=== PATIENT | female | born 1955 | race Two or more races ===

== ENCOUNTER → 2020-07-05 11:13 | Outpatient (BNVA) | payer MEDICAID, SELFPAY | PROVIDERS: PCP Internal Medicine; Referring Provider Internal Medicine; Visit Provider Internal Medicine Endocrinology, Diabetes & Metabolism | DX: E89.0 Postprocedural hypothyroidism (principal); E05.00 Thyrotoxicosis with diffuse goiter without thyrotoxic crisis or storm; E11.9 Type 2 diabetes mellitus without complications; E78.5 Hyperlipidemia, unspecified; I10 Essential (primary) hypertension; B20 Human immunodeficiency virus [HIV] disease | CPT/HCPCS: 99212 ==

== ENCOUNTER 2020-07-05 12:00 | Outpatient (REF) | payer MEDICAID, SELFPAY ==
[2020-07-05 14:44] LABS: Thyroid Stimulating Hormone 0.52 uIU/mL (0.32-4.0)
== END 2020-07-05 12:01 | disposition home or self-care (01) ==
LOC: HO.10HDL 12:00
PROVIDERS: Visit Provider Internal Medicine Endocrinology, Diabetes & Metabolism
DX: E05.00 Thyrotoxicosis with diffuse goiter without thyrotoxic crisis or storm (principal); E89.0 Postprocedural hypothyroidism
CPT/HCPCS: 84439; 84443

== ENCOUNTER 2020-07-10 12:28 | Outpatient (REF) | payer MEDICAID, SELFPAY ==
--- NOTE | 2020-07-10 12:33 | MM_ITS ---
EXAMINATION: MM SCREENING DIGITAL BREAST TOMOSYNTHESIS, BILATERAL CLINICAL INFORMATION: Screening. Asymptomatic. The lifetime risk of breast cancer based on the Tyrer-Cuzick Model is 4%. COMPARISON: Mammography: 05/11/2019, 04/07/2018, 03/13/2017 TECHNIQUE: Digital breast tomosynthesis is performed in both the craniocaudal and mediolateral oblique views along with computer-aided detection (CAD). Synthesized 2D images are generated from the tomosynthesis. FINDINGS: There are scattered areas of fibroglandular density (ACR BI-RADS breast composition Category b). There are no significant masses, abnormal calcifications, or other abnormalities. No significant changes from prior exams. MM/MM tomosynthesis screening BI IMPRESSION: No mammographic evidence of malignancy. ASSESSMENT: BI-RADS 1: Negative RECOMMENDATION: Routine annual mammography screening. This patient's information was entered into a reminder system with a target due date for their next mammogram.
== END 2020-07-10 12:29 | disposition home or self-care (01) ==
LOC: HO.MAMMO 12:28
PROVIDERS: PCP Internal Medicine; Visit Provider Internal Medicine
DX: Z12.31 Encounter for screening mammogram for malignant neoplasm of breast (principal)
CPT/HCPCS: 77063; 77067

== ENCOUNTER 2021-01-03 10:51 | Outpatient (REF) | payer MEDICAID, SELFPAY ==
[2021-01-03 12:31] LABS: Free T4 (Free Thyroxine) 1.17 ng/dL (0.71-1.85); Thyroid Stimulating Hormone 0.15 uIU/mL (0.32-4.0)
== END 2021-01-03 10:52 | disposition home or self-care (01) ==
LOC: HO.LAB 10:51
PROVIDERS: PCP Internal Medicine; Visit Provider Internal Medicine Endocrinology, Diabetes & Metabolism
DX: E89.0 Postprocedural hypothyroidism (principal); E05.00 Thyrotoxicosis with diffuse goiter without thyrotoxic crisis or storm
CPT/HCPCS: 36415; 84439; 84443

== ENCOUNTER → 2021-02-05 11:30 | Outpatient (BNVA) | payer MEDICAID, SELFPAY | PROVIDERS: PCP Internal Medicine; Visit Provider Internal Medicine Endocrinology, Diabetes & Metabolism | DX: E89.0 Postprocedural hypothyroidism (principal); E05.00 Thyrotoxicosis with diffuse goiter without thyrotoxic crisis or storm | CPT/HCPCS: 99212 ==

== ENCOUNTER 2021-06-07 11:38 | Outpatient (REF) | payer MEDICAID, SELFPAY ==
[2021-06-07 15:08] LABS: Free T4 (Free Thyroxine) 1.26 ng/dL (0.71-1.85); Thyroid Stimulating Hormone 0.45 uIU/mL (0.32-4.0)
== END 2021-06-07 11:39 | disposition home or self-care (01) ==
LOC: HO.LAB 11:38
PROVIDERS: PCP Internal Medicine; Visit Provider Nurse Practitioner Gerontology
DX: E89.0 Postprocedural hypothyroidism (principal); E05.00 Thyrotoxicosis with diffuse goiter without thyrotoxic crisis or storm
CPT/HCPCS: 36415; 84439; 84443; 99212

== ENCOUNTER 2021-07-18 08:33 | Outpatient (REF) | payer MEDICAID, SELFPAY | END 2021-07-18 08:34 | disposition home or self-care (01) | LOC: HO.LAB 08:33 | PROVIDERS: PCP Internal Medicine; Visit Provider Internal Medicine | DX: Z20.822 Contact with and (suspected) exposure to COVID-19 (principal) | CPT/HCPCS: C9803; U0003; U0005 ==

== ENCOUNTER 2021-11-22 11:26 | Outpatient (REF) | payer MEDICARE, MEDICAID, SELFPAY ==
--- NOTE | ~2021-11-22 | MM_ITS ---
EXAMINATION: MM SCREENING DIGITAL BREAST TOMOSYNTHESIS, BILATERAL CLINICAL INFORMATION: Screening. Asymptomatic. The lifetime risk of breast cancer based on the Tyrer-Cuzick Model is 4%. COMPARISON: Mammography: 07/10/2020, 05/11/2019, 04/07/2018 TECHNIQUE: Digital breast tomosynthesis is performed in both the craniocaudal and mediolateral oblique views along with computer-aided detection (CAD). Synthesized 2D images are generated from the tomosynthesis. Additional left MLO view is provided. FINDINGS: There are scattered areas of fibroglandular density (ACR BI-RADS breast composition Category b). There are no significant masses, abnormal calcifications, or other abnormalities. Parenchymal pattern is similar to prior studies. No developing density. No significant changes. MM/MM tomosynthesis screening BI IMPRESSION: No mammographic evidence of malignancy. ASSESSMENT: BI-RADS 1: Negative RECOMMENDATION: Routine annual mammography screening. This patient's information was entered into a reminder system with a target due date for their next mammogram.
--- NOTE | ~2021-11-22 | MM_ITS ---
EXAMINATION: BONE DENSITOMETRY CLINICAL INDICATION: Osteoporosis. COMPARISON: None (current study represents initial baseline exam). TECHNIQUE: Using a [employer] DXA System (software version: 13.1) manufactured by [employer], dual-energy x-ray absorptiometry was performed of the lumbar spine and left hip. The images are of good technical quality. Summary results are attached. FINDINGS: AP SPINE L1-L4: BMD 0.942 g/cm2, Z-score -0.2, T-score -2.0, osteopenia. LEFT FEMUR, NECK: BMD 0.936 g/cm2, Z-score 0.9, T-score -0.7, normal. LEFT FEMUR, TOTAL: BMD 0.979 g/cm2, Z-score 1.1, T-score -0.2, normal. IDENTIFIED RISK FACTORS: Menopause, height loss, hysterectomy, low calcium intake, osteoporosis, right oophorectomy. HISTORY OF FRACTURE: None listed. MEDICATIONS: Calcium, vitamin D. MM/XR DEXA axial skeleton IMPRESSION: 1. DIAGNOSIS: Osteopenia based on the lowest T-score value of -2.0 in the lumbar spine applying World Health Organization criteria. 2. 10-YEAR FRACTURE RISK PREDICTION, FRAX: Major osteoporotic fracture (clinical spine, forearm, hip or shoulder) 4.2%. Hip fracture 0.2%. 3. Treatment Recommendations: NOF guidelines recommend consideration for treatment in postmenopausal women and men age 50 and older presenting with the following: -A hip or vertebral (clinical or morphometric) fracture. -T-score less than or equal to -2.5 at the femoral neck or spine after appropriate evaluation to exclude secondary causes. -Low bone mass at the hip or spine and a 10-year fracture probability by FRAX of greater than or equal to 3% for hip fracture or greater than or equal to 20% for major osteoporotic fracture based on the [place] adapted WHO algorithm. 4. Other Recommendations: All treatment decisions require clinical judgment and consideration of individual patient factors, including patient preferences, comorbidities, previous drug use, risk factors not captured in the FRAX model (e.g. frailty, falls, vitamin D deficiency, increased bone turnover, interval significant decline in bone density) and possible under or overestimation of fracture risk by FRAX. Additional medical evaluation for secondary cause of low bone mineral density may be appropriate. FUTURE SCAN RECOMMENDATION: People with diagnosed cases of osteoporosis or at high risk for fracture should have regular bone mineral density tests. For patients eligible for Medicare, routine testing is allowed once every 2 years. The testing frequency can be increased to one year for patients who have rapidly progressing disease, those who are receiving or discontinuing medical therapy to restore bone mass, or have additional risk factors.
== END 2021-11-22 11:27 | disposition home or self-care (01) ==
LOC: HO.MAMMO 11:26
PROVIDERS: PCP Internal Medicine; Visit Provider Internal Medicine
DX: Z12.31 Encounter for screening mammogram for malignant neoplasm of breast (principal); Z13.820 Encounter for screening for osteoporosis; M81.0 Age-related osteoporosis without current pathological fracture; Z78.0 Asymptomatic menopausal state
CPT/HCPCS: 77063; 77067; 77080

== ENCOUNTER 2021-12-06 13:29 | Outpatient (REF) | payer MEDICARE, MEDICAID, SELFPAY ==
[2021-12-06 16:16] LABS: Free T4 (Free Thyroxine) 1.12 ng/dL (0.71-1.85)
== END 2021-12-06 13:30 | disposition home or self-care (01) ==
LOC: HO.LAB 13:29
PROVIDERS: PCP Internal Medicine; Visit Provider Nurse Practitioner Gerontology
DX: E89.0 Postprocedural hypothyroidism (principal); E05.00 Thyrotoxicosis with diffuse goiter without thyrotoxic crisis or storm; Z79.899 Other long term (current) drug therapy; I10 Essential (primary) hypertension
CPT/HCPCS: 36415; 84439; 84443; 99212

== ENCOUNTER 2022-06-24 13:27 | Outpatient (REF) | payer OTHER, SELFPAY ==
--- NOTE | ~2022-06-24 | US_ITS ---
EXAMINATION: US SOFT TISSUE HEAD/NECK CLINICAL INFORMATION: Localized swelling, mass and lump, neck. COMPARISON: None TECHNIQUE: Linear transducer grayscale and color Doppler examination of the sublingual area, midline upper neck. FINDINGS: Ultrasound imaging in sublingual region reveals a hypoechoic solid lesion measuring 0.7 x 0.8 x 1.0 cm. It has peripheral vasculature and likely represents a small lymph node. The measurements are within normal limits. US/US soft tiss head and/or neck IMPRESSION: Palpable lesion in the right sublingual region corresponds to a solid avascular lymph node. The measurements are within normal limits for neck lymph nodes.
== END 2022-06-24 13:28 | disposition home or self-care (01) ==
LOC: HO.US 13:27
PROVIDERS: Visit Provider Family Medicine
DX: R22.1 Localized swelling, mass and lump, neck (principal)
CPT/HCPCS: 76536

== ENCOUNTER 2022-12-06 13:25 | Outpatient (REF) | payer OTHER, SELFPAY ==
--- NOTE | ~2022-12-06 | MM_ITS ---
EXAMINATION: MM SCREENING DIGITAL BREAST TOMOSYNTHESIS, BILATERAL CLINICAL INFORMATION: Screening. Asymptomatic. The lifetime risk of breast cancer based on the Tyrer-Cuzick Model is 4%. COMPARISON: Mammography: 11/22/2021, 07/10/2020, 05/11/2019 TECHNIQUE: Digital breast tomosynthesis is performed in both the craniocaudal and mediolateral oblique views along with computer-aided detection (CAD). Synthesized 2D images are generated from the tomosynthesis. Additional exaggerated left CC view is provided. FINDINGS: There are scattered areas of fibroglandular density (ACR BI-RADS breast composition Category b). There are no significant masses, abnormal calcifications, or other abnormalities. Parenchymal pattern is similar to prior studies. There is no developing density or architectural abnormality. The axilla and skin contours are unremarkable. No significant changes. MM/MM tomosynthesis screening BI IMPRESSION: No mammographic evidence of malignancy. ASSESSMENT: BI-RADS 1: Negative RECOMMENDATION: Routine annual mammography screening. This patient's information was entered into a reminder system with a target due date for their next mammogram.
== END 2022-12-06 13:26 | disposition home or self-care (01) ==
LOC: HO.MAMMO 13:25
PROVIDERS: PCP Internal Medicine; Visit Provider Internal Medicine
DX: Z12.31 Encounter for screening mammogram for malignant neoplasm of breast (principal)
CPT/HCPCS: 77063; 77067

== ENCOUNTER 2023-02-17 10:54 | Outpatient (REF) | payer OTHER, SELFPAY ==
[2023-02-17 13:04] LABS: Anion Gap 15 (12-20); Blood Urea Nitrogen 11 mg/dL (9-16); Calcium 10.1 mg/dL (8.4-10.2); Carbon Dioxide 27 mmol/L (22-29); Chloride 104 mmol/L (96-108); Estimated Glomerular Filt Rate > 60; Glucose Random 118 mg/dL (60-115); Potassium 4.1 mmol/L (3.3-5.1); Sodium 142 mmol/L (135-145)
[2023-02-17 13:22] LABS: Thyroid Stimulating Hormone 0.67 uIU/mL (0.32-4.0)
[2023-02-17 13:45] LABS: Cholesterol 145 mg/dL; HDL Cholesterol 44 mg/dL; LDL Cholesterol Calculated 86 mg/dl; Triglycerides 75 mg/dL
[2023-02-17 15:03] LABS: Reflex LDLD? No
[2023-02-20 01:54] LABS: Thyroid Peroxidase Antibodies 1 IU/mL (<9)
== END 2023-02-17 10:55 | disposition home or self-care (01) ==
LOC: HO.LAB 10:54
PROVIDERS: PCP Internal Medicine; Visit Provider Internal Medicine
DX: I10 Essential (primary) hypertension (principal); E11.65 Type 2 diabetes mellitus with hyperglycemia; E03.9 Hypothyroidism, unspecified; Z00.00 Encounter for general adult medical examination without abnormal findings
CPT/HCPCS: 36415; 80048; 80061; 82306; 84443; 86376

== ENCOUNTER 2023-04-01 11:19 | Outpatient (REF) | payer OTHER, SELFPAY ==
[2023-04-01 13:10] LABS: MANUAL DIFF FLAG NO
[2023-04-01 13:37] LABS: Basophils Absolute Auto 0.1 X10*3/uL (0.0-0.2); Basophils Percent Auto 0.7 % (0-2); Eosinophils Absolute Auto 0.4 X10*3/uL (0.0-0.4); Eosinophils Percent Auto 4.9 % (0-4); Hematocrit 40.1 % (37.0-47.0); Hemoglobin 13.1 g/dl (12.0-16.0); Imm Gran Abs Auto 0.03 X10*3/uL (0.00-0.03); Imm Gran Pct Auto 0.4 % (0.0-0.4); Lymphocytes Absolute Auto 2.8 X10*3/uL (1.2-4.9); Lymphocytes Percent Auto 33.6 % (20-40); Mean Corpuscular HGB Conc 32.7 g/dl (31.0-35.0); Mean Corpuscular Hemoglobin 31.2 pg (27.0-33.0); Mean Corpuscular Volume 95.5 fL (80.0-98.0); Monocytes Absolute Auto 0.7 X10*3/uL (0.1-1.2); Monocytes Percent Auto 8.8 % (2-11); Neutrophils Absolute Auto 4.3 x10*3/uL (2.0-8.3); Neutrophils Percent Auto 51.6 % (45-73); Platelet Count 325 X10*3/uL (160-400); White Blood Count 8.4 X10*3/uL (4.8-10.8)
[2023-04-01 13:51] LABS: Alanine Aminotransferase 40 U/L (0-31); Albumin Level 4.3 g/dL (3.5-5.0); Alkaline Phosphatase 94 U/L (39-117); Anion Gap 13 (12-20); Aspartate Amino Transferase 38 U/L (5-31); Bilirubin Total 0.4 mg/dL (0.0-1.0); Blood Urea Nitrogen 9 mg/dL (9-16); Calcium 10.1 mg/dL (8.4-10.2); Carbon Dioxide 28 mmol/L (22-29); Chloride 106 mmol/L (96-108); Estimated Glomerular Filt Rate > 60; Glucose Random 120 mg/dL (60-115); Potassium 3.7 mmol/L (3.3-5.1); Sodium 143 mmol/L (135-145); Total Protein 7.7 g/dL (6.5-8.0)
[2023-04-02 11:39] LABS: Absolute CD3 Count 1403 cells/uL (840-3060); Absolute CD4 Count 647 cells/uL (490-1740); Absolute CD8 Count 748 cells/uL (180-1170); Absolute Lymphocytes 2919 cells/uL (850-3900); CD4 CD8 Ratio 0.86 (0.86-5.00); Percent CD3 Cells 48 % (57-85); Percent CD4 Cells 22 % (30-61); Percent CD8 Cells 26 % (12-42)
[2023-04-03 15:07] LABS: HIV RNA PCR Qn Copies 114 copies/mL (NOT DETECTED); HIV RNA PCR Qn Log Copies 2.06 (NOT DETECTED)
== END 2023-04-01 11:20 | disposition home or self-care (01) ==
LOC: HO.HHCL 11:19
PROVIDERS: Visit Provider Family Medicine
DX: B20 Human immunodeficiency virus [HIV] disease (principal)
CPT/HCPCS: 36415; 80053; 85025; 86359; 86360; 87536

== ENCOUNTER 2023-04-18 12:04 | Outpatient (REF) | payer OTHER, SELFPAY ==
[2023-04-21 15:53] LABS: HIV RNA PCR Qn Copies 26 copies/mL (NOT DETECTED); HIV RNA PCR Qn Log Copies 1.41 (NOT DETECTED)
== END 2023-04-18 12:05 | disposition home or self-care (01) ==
LOC: HO.HHCL 12:04
PROVIDERS: Visit Provider Family Medicine
DX: B20 Human immunodeficiency virus [HIV] disease (principal)
CPT/HCPCS: 36415; 87536

== ENCOUNTER 2023-09-22 11:06 | Outpatient (REF) | payer OTHER, SELFPAY ==
[2023-09-22 14:16] LABS: Creatinine Urine 64.54 mg/dL; Microalbum/Creatinine Ratio Ur 97.6 ug/mg cr (<30)
[2023-09-24 13:23] LABS: HIV RNA PCR Qn Copies 99 copies/mL (NOT DETECTED)
== END 2023-09-22 11:07 | disposition home or self-care (01) ==
LOC: HO.HHCL 11:06
PROVIDERS: Internal Medicine; Visit Provider Student in an Organized Health Care Education/Training Program
DX: E11.65 Type 2 diabetes mellitus with hyperglycemia (principal); B20 Human immunodeficiency virus [HIV] disease
CPT/HCPCS: 36415; 82043; 82570; 87536

== ENCOUNTER 2023-09-30 12:05 | Outpatient (REF) | payer OTHER, SELFPAY ==
[2023-09-30 14:09] LABS: Vitamin B12 367 pg/mL (200-900)
[2023-09-30 14:13] LABS: Free T4 (Free Thyroxine) 1.19 ng/dL (0.71-1.85); TSH reflex Free T4 1.27 uIU/mL (0.32-4.0)
[2023-09-30 14:24] LABS: T4 Thyroxine 10.8 ug/dL (4.5-12.0)
[2023-10-01 06:23] LABS: Triiodothyronine T3 Free 2.4 pg/mL (2.3-4.2); Triiodothyronine T3 Total 96 ng/dL (76-181)
== END 2023-09-30 12:06 | disposition home or self-care (01) ==
LOC: HO.HHCL 12:05
PROVIDERS: Visit Provider Internal Medicine
DX: E11.65 Type 2 diabetes mellitus with hyperglycemia (principal); E03.9 Hypothyroidism, unspecified
CPT/HCPCS: 36415; 82607; 84436; 84439; 84443; 84480; 84481

== ENCOUNTER 2023-12-10 11:26 | Outpatient (REF) | payer OTHER, SELFPAY ==
--- NOTE | ~2023-12-10 | MM_ITS ---
EXAMINATION: MM SCREENING DIGITAL BREAST TOMOSYNTHESIS, BILATERAL CLINICAL INFORMATION: Screening. Asymptomatic. COMPARISON: Mammography: 11/28/2022, 11/22/2021, 07/10/2020, 05/11/2019. TECHNIQUE: Digital breast tomosynthesis is performed in both the craniocaudal and mediolateral oblique views along with computer-aided detection (CAD). Synthesized 2D images are generated from the tomosynthesis. FINDINGS: There are scattered areas of fibroglandular density (ACR BI-RADS breast composition Category b). There are no suspicious masses, suspicious grouped calcifications, or areas of architectural distortion in either breast. The parenchymal pattern is stable from prior exams. No skin or axillary abnormalities. MM/MM tomosynthesis screening BI IMPRESSION: No mammographic evidence of malignancy. ASSESSMENT: BI-RADS BI-RADS 1 - Negative RECOMMENDATION: Routine annual mammography screening. 1 year F/U This examination should not preclude the clinical evaluation of a suspicious palpable abnormality. This patient's information was entered into a reminder system with a target due date for their next mammogram.
== END 2023-12-10 11:27 | disposition home or self-care (01) ==
LOC: HO.MAMMO 11:26
PROVIDERS: PCP Internal Medicine; Visit Provider Internal Medicine
DX: Z12.31 Encounter for screening mammogram for malignant neoplasm of breast (principal)
CPT/HCPCS: 77063; 77067

== ENCOUNTER → 2023-12-10 12:30 | Outpatient (BNV) | payer OTHER, SELFPAY | PROVIDERS: PCP Internal Medicine; Visit Provider Radiology Diagnostic Radiology | DX: Z12.31 Encounter for screening mammogram for malignant neoplasm of breast (principal) | CPT/HCPCS: 77063; 77067 ==

== ENCOUNTER 2024-02-03 12:16 | Outpatient (REF) | payer OTHER, SELFPAY ==
[2024-02-03 13:04] LABS: MANUAL DIFF FLAG NO
[2024-02-03 13:15] LABS: Appearance Urine Clear; Color Urine Yellow; Glucose Urine UA Negative (Negative); Leukocyte Esterase Urine Large (3+) (Negative); Nitrite Urine Negative (Negative); Specific Gravity - Urine 1.015 (1.005-1.025); UMIC TRIGGER UACC YES; Urine Blood Moderate (2+) (Negative); Urine Ketones Negative (Negative); Urine Protein Negative (Neg-Trace)
[2024-02-03 13:18] LABS: Bacteria Urine 1+ (None Seen); Hyaline Casts Urine 0-2 /LPF (0-2); Squamous Epithelial Cell Urine 0-2 /HPF (0-2); UACC Culture Trigger YES; WBC Urine >50 /HPF (0-5)
[2024-02-03 13:24] LABS: Basophils Absolute Auto 0.1 X10*3/uL (0.0-0.2); Basophils Percent Auto 0.6 % (0-2); Eosinophils Absolute Auto 0.3 X10*3/uL (0.0-0.4); Eosinophils Percent Auto 3.3 % (0-4); Hematocrit 43.5 % (37.0-47.0); Hemoglobin 14.4 g/dl (12.0-16.0); Imm Gran Abs Auto 0.02 X10*3/uL (0.00-0.03); Imm Gran Pct Auto 0.3 % (0.0-0.4); Lymphocytes Absolute Auto 2.2 X10*3/uL (1.2-4.9); Lymphocytes Percent Auto 27.4 % (20-40); Mean Corpuscular HGB Conc 33.1 g/dl (31.0-35.0); Mean Corpuscular Hemoglobin 31.6 pg (27.0-33.0); Mean Corpuscular Volume 95.4 fL (80.0-98.0); Mean Platelet Volume 11.8 fL (9.4-12.3); Monocytes Absolute Auto 0.7 X10*3/uL (0.1-1.2); Monocytes Percent Auto 8.6 % (2-11); Neutrophils Absolute Auto 4.8 x10*3/uL (2.0-8.3); Neutrophils Percent Auto 59.8 % (45-73); Platelet Count 263 X10*3/uL (160-400); Red Blood Count 4.56 X10*6/uL (4.20-5.50); Red Cell Distribution Width 13.2 % (11.0-16.0)
[2024-02-03 13:44] LABS: Estimated Average Glucose 134 mg/dL; Hemoglobin A1c % 6.3 % (<6.0)
[2024-02-03 14:15] LABS: Syphilis Screen Nonreactive (Nonreactive)
[2024-02-03 14:17] LABS: HBS Num1 0.45 mIU/mL (0-7.99); HBc Num1 0.17 S/CO (0.00-0.79); HBsAGNum1 0.25 S/CO (0.00-0.99); Hepatitis B Core Antibody Nonreactive (Nonreactive); Hepatitis B Surface Antigen Negative (Negative); ~Hepatitis B Surface Antibody NONREACTIVE (Nonreactive)
[2024-02-03 14:29] LABS: Alanine Aminotransferase 80 U/L (0-31); Albumin Level 4.6 g/dL (3.5-5.0); Alkaline Phosphatase 92 U/L (39-117); Anion Gap 15 (12-20); Aspartate Amino Transferase 75 U/L (5-31); Bilirubin Total 0.5 mg/dL (0.0-1.0); Blood Urea Nitrogen 11 mg/dL (9-16); Carbon Dioxide 28 mmol/L (22-29); Chloride 104 mmol/L (96-108); Cholesterol 195 mg/dL (<200); Estimated Glomerular Filt Rate > 60; Glucose Random 88 mg/dL (60-115); HDL Cholesterol 48 mg/dL (>40); LDL Cholesterol Calculated 125 mg/dL (<100); Potassium 4.1 mmol/L (3.3-5.1); Sodium 143 mmol/L (135-145); Total Protein 8.5 g/dL (6.5-8.0); Triglycerides 112 mg/dL (<150)
[2024-02-03 14:30] LABS: Reflex LDLD? No
[2024-02-03 14:41] LABS: CT PCR NOT DETECTED (Not Detect.); NG PCR NOT DETECTED (Not Detect.)
[2024-02-04 13:08] LABS: HIV RNA PCR Qn Copies 24 copies/mL (NOT DETECTED); HIV RNA PCR Qn Log Copies 1.38 (NOT DETECTED)
[2024-02-04 15:28] LABS: HCV Log PCR <1.18 NOT DETECTED Log IU/mL (NOT DETECTED); HepC Viral Load <15 NOT DETECTED IU/mL (NOT DETECTED)
[2024-02-06 07:19] LABS: TS Negative Control Passed; TS Panel A 0; TS Panel B 0; TS Positive Control Passed; TSpotTB Negative (Negative)
[2024-02-06 17:37] LABS: Absolute CD3 Count 1161 cells/uL (840-3060); Absolute CD4 Count 579 cells/uL (490-1740); Absolute CD8 Count 579 cells/uL (180-1170); Absolute Lymphocytes 2476 cells/uL (850-3900); Percent CD3 Cells 47 % (57-85); Percent CD4 Cells 23 % (30-61); Percent CD8 Cells 23 % (12-42)
== END 2024-02-03 12:17 | disposition home or self-care (01) ==
LOC: HO.HHCL 12:16
PROVIDERS: Visit Provider Student in an Organized Health Care Education/Training Program
DX: B20 Human immunodeficiency virus [HIV] disease (principal)
CPT/HCPCS: 0352U; 0353U; 36415; 80053; 80061; 81001; 83036; 85025; 86359; 86360; 86481; 86704; 86706; 86780; 87086; 87088; 87186; 87340; 87522; 87536; 87625; 88112; 88175

== ENCOUNTER 2024-02-03 19:06 | Outpatient (REF) | payer OTHER, SELFPAY ==
[2024-02-03 23:03] LABS: CT PCR NOT DETECTED (Not Detect.); NG PCR NOT DETECTED (Not Detect.)
[2024-02-04 11:08] LABS: Bacterial Vaginosis PCR NEGATIVE (Negative); Candida Group PCR NOT DETECTED (Not Detect); Candida glab krusei PCR NOT DETECTED (Not Detect); Trichomonas vaginalis PCR NOT DETECTED (Not Detect)
== END 2024-02-03 19:07 | disposition home or self-care (01) ==
LOC: HO.HHCLNP 19:06
PROVIDERS: Visit Provider Internal Medicine
DX: Z13.89 Encounter for screening for other disorder (principal)
CPT/HCPCS: 0352U; 0353U; 36415; 87625; 88175

== ENCOUNTER 2024-03-12 09:24 | Outpatient (REF) | payer OTHER, SELFPAY ==
--- NOTE | ~2024-03-12 | MM_ITS ---
EXAMINATION: BONE DENSITOMETRY CLINICAL INDICATION: Age-related osteoporosis without current pathological fracture. COMPARISON: Baseline BD dated 11/22/2021. TECHNIQUE: Using a [employer] DXA System (software version: 13.1) manufactured by [employer], dual-energy x-ray absorptiometry was performed of the lumbar spine and left hip. The images are of good technical quality. Summary results are attached. FINDINGS: LEFT FEMUR, NECK: Current: BMD 0.892 g/cm2, Z-score 0.7, T-score -1.0, normal. Baseline: BMD 0.936 g/cm2. LEFT FEMUR, TOTAL: Current: BMD 0.956 g/cm2, Z-score 1.1, T-score -0.4, normal, 2.3% decrease from baseline (<5% change is not significant). Baseline: BMD 0.979 g/cm2. AP SPINE L1-L4: Current: BMD 0.905 g/cm2, Z-score -0.4, T-score -2.3, osteopenia, 3.9% decrease from baseline (<5% change is not significant). Baseline: BMD 0.942 g/cm2. IDENTIFIED RISK FACTORS: Height loss, menopause, hysterectomy, right oophorectomy. HISTORY OF FRACTURE: None listed. MEDICATIONS: Multivitamin. MM/XR DEXA axial skeleton IMPRESSION: 1. DIAGNOSIS: Osteopenia based on the lowest T-score value of -2.3 in the lumbar spine applying World Health Organization criteria. 2. 10-YEAR FRACTURE RISK PREDICTION, FRAX: Major osteoporotic fracture (clinical spine, forearm, hip or shoulder) 4.7%. Hip fracture 0.4%. 3. Treatment Recommendations: NOF guidelines recommend consideration for treatment in postmenopausal women and men age 50 and older presenting with the following: -A hip or vertebral (clinical or morphometric) fracture. -T-score less than or equal to -2.5 at the femoral neck or spine after appropriate evaluation to exclude secondary causes. -Low bone mass at the hip or spine and a 10-year fracture probability by FRAX of greater than or equal to 3% for hip fracture or greater than or equal to 20% for major osteoporotic fracture based on the [place] adapted WHO algorithm. 4. Other Recommendations: All treatment decisions require clinical judgment and consideration of individual patient factors, including patient preferences, comorbidities, previous drug use, risk factors not captured in the FRAX model (e.g. frailty, falls, vitamin D deficiency, increased bone turnover, interval significant decline in bone density) and possible under or overestimation of fracture risk by FRAX. Additional medical evaluation for secondary cause of low bone mineral density may be appropriate. FUTURE SCAN RECOMMENDATION: People with diagnosed cases of osteoporosis or at high risk for fracture should have regular bone mineral density tests. For patients eligible for Medicare, routine testing is allowed once every 2 years. The testing frequency can be increased to one year for patients who have rapidly progressing disease, those who are receiving or discontinuing medical therapy to restore bone mass, or have additional risk factors.
== END 2024-03-12 09:25 | disposition home or self-care (01) ==
LOC: HO.MAMMO 09:24
PROVIDERS: PCP Internal Medicine; Visit Provider Internal Medicine
DX: M81.0 Age-related osteoporosis without current pathological fracture (principal)
CPT/HCPCS: 77080

== ENCOUNTER 2024-04-30 11:35 | Outpatient (REF) | payer OTHER, SELFPAY ==
[2024-04-30 16:37] LABS: Basophils Absolute Auto 0.1 X10*3/uL (0.0-0.2); Basophils Percent Auto 0.9 % (0-2); Eosinophils Absolute Auto 0.3 X10*3/uL (0.0-0.4); Eosinophils Percent Auto 3.7 % (0-4); Hematocrit 42.7 % (37.0-47.0); Imm Gran Abs Auto 0.02 X10*3/uL (0.00-0.03); Imm Gran Pct Auto 0.2 % (0.0-0.4); Lymphocytes Absolute Auto 2.2 X10*3/uL (1.2-4.9); Lymphocytes Percent Auto 27.2 % (20-40); MANUAL DIFF FLAG NO; Mean Corpuscular HGB Conc 32.8 g/dl (31.0-35.0); Mean Corpuscular Hemoglobin 31.7 pg (27.0-33.0); Mean Corpuscular Volume 96.8 fL (80.0-98.0); Mean Platelet Volume 12.1 fL (9.4-12.3); Monocytes Absolute Auto 0.8 X10*3/uL (0.1-1.2); Monocytes Percent Auto 9.5 % (2-11); Neutrophils Absolute Auto 4.7 x10*3/uL (2.0-8.3); Neutrophils Percent Auto 58.5 % (45-73); Platelet Count 317 X10*3/uL (160-400); Red Blood Count 4.41 X10*6/uL (4.20-5.50); Red Cell Distribution Width 13.1 % (11.0-16.0); White Blood Count 8.1 X10*3/uL (4.8-10.8)
[2024-04-30 16:58] LABS: Alanine Aminotransferase 66 U/L (0-31); Albumin Level 4.4 g/dL (3.5-5.0); Alkaline Phosphatase 86 U/L (39-117); Anion Gap 15 (12-20); Aspartate Amino Transferase 53 U/L (5-31); Bilirubin Total 0.5 mg/dL (0.0-1.0); Blood Urea Nitrogen 10 mg/dL (9-16); Calcium 10.4 mg/dL (8.4-10.2); Carbon Dioxide 27 mmol/L (22-29); Chloride 103 mmol/L (96-108); Estimated Glomerular Filt Rate > 60; Glucose Random 147 mg/dL (60-115); Potassium 4.5 mmol/L (3.3-5.1); Sodium 140 mmol/L (135-145); Total Protein 8.4 g/dL (6.5-8.0)
[2024-05-04 14:29] LABS: HIV RNA PCR Qn Copies <20 DETECTED copies/mL (NOT DETECTED); HIV RNA PCR Qn Log Copies <1.30 DETECTED (NOT DETECTED)
[2024-05-06 16:48] LABS: Absolute CD3 Count 1094 cells/uL (840-3060); Absolute CD4 Count 523 cells/uL (490-1740); Absolute CD8 Count 595 cells/uL (180-1170); Absolute Lymphocytes 2118 cells/uL (850-3900); CD4 CD8 Ratio 0.88 (0.86-5.00); Percent CD3 Cells 52 % (57-85); Percent CD4 Cells 25 % (30-61); Percent CD8 Cells 28 % (12-42)
== END 2024-04-30 11:36 | disposition home or self-care (01) ==
LOC: HO.HHCL 11:35
PROVIDERS: Visit Provider Student in an Organized Health Care Education/Training Program
DX: B20 Human immunodeficiency virus [HIV] disease (principal)
CPT/HCPCS: 36415; 80053; 85025; 86359; 86360; 87536

== ENCOUNTER 2024-06-03 08:26 | Outpatient (REF) | payer OTHER, SELFPAY | END 2024-06-03 08:27 | disposition home or self-care (01) | LOC: HO.US 08:26 | PROVIDERS: PCP Internal Medicine; Visit Provider Internal Medicine | DX: R74.01 Elevation of levels of liver transaminase levels (principal) | CPT/HCPCS: 76700; 76981 ==

== ENCOUNTER 2024-06-04 10:34 | Outpatient (AMB) | payer OTHER, SELFPAY ==
--- NOTE | 2024-06-04 10:46 | A.OFFVIS_ITS ---
Vital Signs 06/04/24 10:47 Height 5 ft 1 in Weight 127 lb 13.89 oz BMI 24.2 BP 108/60 Blood Pressure Location Rt brachial Position Sitting Pulse 76 Pulse Source Pulse Oximeter Intake Visit Reasons: Hypothyroidism-conf Intake Note: Patient presents today to re-establish treatment for Hypothyroidism: Instructor Ballroom Dancing Required: Yes Instructor Ballroom Dancing Language: Treatment Supervisor Name: TEJA Martinez/LE SANDS Information Interpreted: clinical only Accompanied by: Self / Same As Patient Allergies No Known Allergies Allergy (Verified 06/04/24 10:49) Medication List - Last Reconciled 06/04/24 by Yeny Espinosa MD aspirin (Adult Aspirin Regimen) 81 mg PO DAILY atorvastatin 40 mg PO DAILY qpjlysqhe-hnsnefbn-iyvjhuh ala 50-200-25 mg (Biktarvy) 1 tab PO DAILY blood sugar diagnostic (FreeStyle Lite Strips) As directed enalapril maleate 20 mg PO DAILY lancets (TRUEplus Lancets) As directed levothyroxine 75 mcg PO DAILY 90 days metformin 850 mg PO BID metoprolol succinate ER 50 mg PO DAILY multivitamin 1 tab PO DAILY HPI Comments Details: Patient is a 68 yo female with hypothyroidism s/p LEONARDO 11/10/09 for Graves disease, who presents for follow up. Was previously following with Pilar Childress. last seen 11/30 Past Medical History: hypertension, hyperlipidemia, osteoporosis, HIV, and post ablative hypothyroidism. History of Graves Disease with orbitopathy. Medications: currently on LT4 75 mcg since 02/05/21. Takes at 4am and takes other medications at 7am and eats at 8:30am. Reports does not forget. Does get diarrhea with metformin. this is normal for her. Patient currently denies heat or cold intolerance, constipation, hair loss, palpitation, anxiety, weight changes, mood changes, low energy, changes in appe arance of eyes or vision changes, tremors, increased diaphoresis or dry skin. ? Patient describes difficulty swallowing. this has been happening for the past few weeks . Patient denies pain on swallowing or voice changes or difficulty breathing. Patient denies any history of childhood neck radiation. Denies having ever used lithium, amiodarone or biotin supplements. Drinks collagen. Not for the last 2-3 months. She denies diplopia, eye pain, + eye dryness. She goes to [facility] ophthalmology at [address] [place] [address] drive has upcoming appoimtment in Oct 05. Family History: 2 sisters, niece and daughter all have eye disease Physical exam General: sitting comfortably in no acute distress HEENT: Mild exophthalmos, EOM intact, moist oral mucosa Neck: supple, symmetrical, no thyromegaly , no dorsocervical or supraclavicular fat pads Cardiac: normal heart sounds Pulm: normal breath sounds B/L, no added breath sounds Abd: not distended, no tenderness Extremities: no edema, no signs of myxedema Neuro: AAO x3, Speech: normal, no facial droop, moving all 4 extremities PFSH Medical History HIV (human immunodeficiency virus infection) PAD (peripheral artery disease) Dyslipidemia Hypertension Diabetes type 2, controlled Glaucoma Graves' orbitopathy Postablative hypothyroidism Hypothyroidism Surgical History Hx of myomectomy Hx of tubal ligation Family History Father No problems noted. Mother No problems noted. Social History Household Members: Significant Other Alcohol intake: never Patient Tobacco Use Status: Never used Tobacco Physical Exam Vital Signs: Last Vital Signs Pulse 76 06/04/24 10:47 BP 108/60 06/04/24 10:47 BMI result Body Mass Index 24.2 Results Reviewed Results Reviewed: Laboratory Tests 09/30/23 12:08 TSH 1.27 Free T4 1.19 Thyroxine (T4) 10.8 Free T3 2.4 Total T3 96 Assessment & Plan Assessment & Plan (1) Postablative hypothyroidism: Code(s): E89.0 - Postprocedural hypothyroidism Category: Medical Plan: Patient with a history of Graves disease status post ablation in 2009 who is following for postablative hypothyroidism. Most recent labs from September 2023 showed normal TSH of 1.27. She does not have any significant symptoms but does have some diarrhea which she thinks is related to metformin use. I will repeat her thyroid function tests. Patient has good administration of levothyroxine. Discussed with patient appropriate administration of levothyroxine, taking it in the morning on an empty stomach 1 hour prior to food or other medications and by 4 hours from any minerals or antacids. She is also complaining of difficulty swallowing for the past few weeks. Mostly with big bites. Denies any odynophagia, voice changes. No family history of thyroid cancer. No personal history of head or neck radiation. I will order a thyroid ultrasound to see if she possibly has any thyroid nodules contributing to dysphagia. Plan: -continue Levoxyl 75 mcg daily -ordered TSH, free T4 -ordered thyroid ultrasound -follow up in 6 weeks to discuss results (2) Graves' orbitopathy: Code(s): E05.00 - Thyrotoxicosis with diffuse goiter without thyrotoxic crisis or storm Category: Medical Plan: Patient has Graves orbitopathy with no evidence of activity.? She has mild exophthalmos.? Extraocular movement is intact.? She denies diplopia, eye pain.? She has some dryness . Previously she used to see Dr. Vora who had treated her dry eye and orbitopathy in the past. She now sees [facility] ophthalmology at [address] [place] [address] Dr Glass's office . Has upcoming appointment in September 1024. Plan: -follow up with [facility] ophthalmology . Plan I spent 30 minutes in reviewing the record, seeing the patient and documenting in the medical record. Orders: Orders US thyroid Today E89.0 - Postprocedural hypothyroidism Medications: New Levoxyl (levothyroxine) 75 mcg PO DAILY 90 tabs 3RF NS Discontinued levothyroxine Discontinued Reason: Duplicate 75 mcg PO DAILY 90 days 90 tabs 3RF E89.0 - Postprocedural hypothyroidism Patient Instructions: Do blood work today Do thyroid ultrasound , someone will call you to schedule this I will see you back in 6 weeks to discuss results Cerave is a good moisturizer Hazte an?lisis de cheryl hoy Hazte kadie ecograf?a de tiroides, alguien te llamar? para programarla Te tamara? en 6 semanas para discutir los resultados. Cerave es un buen humectante. Coding Level of Care Code Est Pt Level 4 (78153) Diagnoses Postablative hypothyroidism E89.0 Graves' orbitopathy E05.00 Time Spent (min) 30
[2024-06-04 10:47] VITALS: BP 108/60; PULSE 76; BMI 24.2
== END 2024-06-04 11:20 | disposition home or self-care (01) ==
PROVIDERS: PCP Internal Medicine; Visit Provider Student in an Organized Health Care Education/Training Program
DX: E89.0 Postprocedural hypothyroidism (principal); E05.00 Thyrotoxicosis with diffuse goiter without thyrotoxic crisis or storm
CPT/HCPCS: 99214

== ENCOUNTER 2024-06-04 11:35 | Outpatient (REF) | payer OTHER, SELFPAY ==
[2024-06-04 14:00] LABS: Free T4 (Free Thyroxine) 1.01 ng/dL (0.71-1.85); Thyroid Stimulating Hormone 1.72 uIU/mL (0.32-4.0)
== END 2024-06-04 11:36 | disposition home or self-care (01) ==
LOC: HO.10HDL 11:35
PROVIDERS: Visit Provider Student in an Organized Health Care Education/Training Program
DX: E89.0 Postprocedural hypothyroidism (principal); E05.00 Thyrotoxicosis with diffuse goiter without thyrotoxic crisis or storm
CPT/HCPCS: 36415; 84439; 84443; 99212

== ENCOUNTER 2024-06-09 14:30 | Outpatient (REF) | payer OTHER, SELFPAY ==
--- NOTE | ~2024-06-09 | US_ITS ---
EXAMINATION: US THYROID CLINICAL INFORMATION: Postprocedural hypothyroidism. History of thyroid ablation for Graves' disease. COMPARISON: None available. TECHNIQUE: Linear transducer grayscale and color Doppler examination with attention to the region of the thyroid. FINDINGS: SIZE: Measurements of the thyroid lobes and nodules are given in sagittal, anteroposterior and transverse dimensions respectively. Right Thyroid Lobe: 1.8 x 1.0 x 0.7 cm, volume 0.7 mL. Parenchyma: The gland echotexture is heterogeneous. Thyroid vascularity is normal. Left Thyroid Lobe: 1.7 x 0.8 x 0.7 cm, volume 0.5 mL. Parenchyma: The gland echotexture is heterogeneous. Thyroid vascularity is normal. Isthmus: 0.2 cm in maximum AP dimension. No focal thyroid nodule is seen. NODES: No lymphadenopathy is seen in the tissue surrounding the thyroid gland. US/US thyroid IMPRESSION: 1. Atrophic appearing thyroid gland consistent with history of thyroid ablation. No nodules. ACR TI-RADS RECOMMENDATION REFERENCE: Ultrasound-guided fine-needle aspiration, followup ultrasound, no further follow up. * TR1 (0 point) and TR2 (2 points): No FNA or follow up. * TR3 (3 points): FNA if more than or equal to 2.5 cm in maximum dimension, followup ultrasound in 1, 3 and 5 years if 1.5 to 2.4 cm in maximum dimension. * TR4 (4-6 points): FNA if more than or equal to 1.5 cm in maximum dimension, followup ultrasound in 1, 2, 3 and 5 years if 1 to 1.4 cm in maximum dimension. * TR5 (more than or equal to 7 points): FNA if more than or equal to 1 cm in maximum dimension, followup ultrasound every year for 5 years if 0.5 to 0.9 cm in maximum dimension. * TR3, TR4 or TR5 nodules that are below the size threshold for followup receive no follow up. Electronically signed by: Jose Ray MD 07/15/2024 03:17 PM [facility]
== END 2024-06-09 14:31 | disposition home or self-care (01) ==
LOC: HO.US 14:30
PROVIDERS: PCP Internal Medicine; Visit Provider Student in an Organized Health Care Education/Training Program
DX: E89.0 Postprocedural hypothyroidism (principal)
CPT/HCPCS: 76536

== ENCOUNTER → 2024-06-09 14:35 | Outpatient (BNV) | payer OTHER, SELFPAY | PROVIDERS: PCP Internal Medicine; Visit Provider Radiology Diagnostic Radiology | DX: E89.0 Postprocedural hypothyroidism (principal) | CPT/HCPCS: 76536 ==

== ENCOUNTER 2024-06-14 09:29 | Outpatient (AMB) | payer OTHER, SELFPAY ==
--- NOTE | 2024-06-14 09:30 | A.OFFVIS_ITS ---
Vital Signs 06/14/24 09:31 Height 5 ft 1 in Weight 131 lb BMI 24.7 Intake Visit Reasons: Abnormal Pap Anus Intake Note: This patient presents for abnormal anal pap, HPV and HIV infection. Pt c/o; reports no complaints at this time. 02/05/2024- Anal pap Call Center Agent Required: Yes Call Center Agent Language: Driver/Refuse Collector Services: Call Center Agent Present (Mian) Call Center Agent Name: [email or web address] Information Interpreted: non-clinical & clinical Accompanied by: Self / Same As Patient Allergies No Known Allergies Allergy (Verified 06/14/24 09:40) Medication List - Last Reconciled 06/14/24 by Faraz Sandoval MD aspirin (Adult Aspirin Regimen) 81 mg PO DAILY atorvastatin 40 mg PO DAILY ldutpasiw-poyoqpwo-rfniock ala 50-200-25 mg (Biktarvy) 1 tab PO DAILY blood sugar diagnostic (FreeStyle Lite Strips) As directed enalapril maleate 20 mg PO DAILY lancets (TRUEplus Lancets) As directed Levoxyl (levothyroxine) 75 mcg PO DAILY NS metformin 850 mg PO BID metoprolol succinate ER 50 mg PO DAILY multivitamin 1 tab PO DAILY HPI HPI Abnormal Pap Anus: Details: 68-year-old female referred for AIN I. She has known HIV so she therefore underwent an anal Pap last January, with her primary care physician. This had shown AIN 1 She denies any complaints with regards to her anus. She denies bleeding or pain. [facility] Medical History (Updated 06/14/24 @ 10:17 by Faraz Sandoval MD) AIN grade I HIV (human immunodeficiency virus infection) PAD (peripheral artery disease) Dyslipidemia Hypertension Diabetes type 2, controlled Glaucoma Graves' orbitopathy Postablative hypothyroidism Hypothyroidism Surgical History Hx of myomectomy Hx of tubal ligation Family History Father No problems noted. Mother No problems noted. Social History Household Members: Significant Other Alcohol intake: never Patient Tobacco Use Status: Never used Tobacco Review of Systems Const Denies chills and Denies fever(s) Card Denies chest pain, Denies dyspnea and Denies dyspnea on exertion Resp Denies cough, Denies dyspnea and Denies dyspnea on exertion GI Denies hematochezia and Denies change in bowel habits Denies hematuria Musc Denies back pain and Denies limited range of motion Neuro Denies focal weakness and Denies convulsions Psych Denies depression and Denies mood swings Physical Exam Vital Signs: BMI result Body Mass Index 24.7 Const General: comfortable and no acute distress Orientation/consciousness: patient oriented x3 Neck Neck: Yes no lymphadenopathy Resp Auscultation: clear to auscultation bilaterally Cardio Rhythm: regular rhythm GI Other: Rectal exam shows small external hemorrhoids on the left and right side, no perianal skin lesions or abnormalities Palpation (GI): Soft to palpation, nontender and no guarding Neuro General: patient oriented x3 Office Procedures Anoscopy She was in adrian-knife position. The anoscope was gently inserted. A full examination of the anal canal was done. She did have some small internal hemorrhoids. There were no lesions seen. There was no abnormal mucosa. There was no fissure or ulceration. There was no induration on digital exam. There was no bleeding. 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 Anoscopy does not reveal any new lesions any abnormality or concerning findings. I would recommend repeating the anoscopy in about 6 months. I explained this to her. She did have a low-grade lesion. She understands the plan well. Coding Level of Care Code Est Pt Level 3 (43969) Diagnoses AIN grade I K62.82 CPT Codes Details - CPT: 30328-[id number] ([id number])
[2024-06-14 09:31] VITALS: BMI 24.7
== END 2024-06-14 10:19 | disposition home or self-care (01) ==
LOC: HO.HGS 09:29
PROVIDERS: PCP Internal Medicine; Visit Provider Surgery
DX: K62.82 Dysplasia of anus (principal)
CPT/HCPCS: 46600; 99213

== ENCOUNTER → 2024-06-14 09:29 | Outpatient (BNVA) | payer OTHER, SELFPAY | PROVIDERS: PCP Internal Medicine; Visit Provider Surgery | DX: K62.82 Dysplasia of anus (principal); B20 Human immunodeficiency virus [HIV] disease; A63.0 Anogenital (venereal) warts | CPT/HCPCS: 46600; 99212 ==

== ENCOUNTER 2024-07-16 10:38 | Outpatient (AMB) | payer OTHER, SELFPAY ==
[2024-07-16 10:43] VITALS: BP 160/70; PULSE 92; BMI 24.7
--- NOTE | 2024-07-16 10:43 | A.OFFVIS_ITS ---
Vital Signs 07/16/24 10:43 Height 5 ft 1 in Weight 130 lb 11.746 oz BMI 24.7 BP 160/70 H Blood Pressure Location Lt brachial Position Sitting Pulse 92 Pulse Source Pulse Oximeter Intake Visit Reasons: Hypothyroidism-lvm Intake Note: Patient present today for Hypothyroidism office visit. Team Manager Required: Yes Team Manager Language: Delicatessen Clerk Services: Team Manager Present Team Manager Name: Sara [id number] Information Interpreted: non-clinical & clinical Accompanied by: Self / Same As Patient Allergies No Known Allergies Allergy (Verified 07/16/24 10:47) Medication List - Last Reconciled 07/16/24 by Yeny Espinosa MD aspirin (Adult Aspirin Regimen) 81 mg PO DAILY atorvastatin 40 mg PO DAILY suufpljmo-qgtehfrj-ylgrjck ala 50-200-25 mg (Biktarvy) 1 tab PO DAILY blood sugar diagnostic (FreeStyle Lite Strips) As directed enalapril maleate 20 mg PO DAILY lancets (TRUEplus Lancets) As directed Levoxyl (levothyroxine) 75 mcg PO DAILY NS metformin 850 mg PO BID metoprolol succinate ER 50 mg PO DAILY multivitamin 1 tab PO DAILY HPI Comments Details: Patient is a 68 yo female with hypothyroidism s/p LEONARDO 11/10/09 for Graves disease, who presents for follow up. Past Medical History: hypertension, hyperlipidemia, osteoporosis, HIV, and post ablative hypothyroidism. History of Graves Disease with orbitopathy. Medications: currently on LT4 75 mcg since 02/05/21. Takes at 4am and takes other medications at 7am and eats at 8:30am. Reports does not forget. Does get diarrhea with metformin. this is normal for her. Patient currently denies heat or cold intolerance, constipation, hair loss, palpitation, anxiety, weight changes, mood changes, low energy, changes in appearance of eyes or vision changes, tremors, increased diaphoresis or dry skin. ? Patient describes difficulty swallowing. this has been happening for the past few weeks . Patient denies pain on swallowing or voice changes or difficulty breathing. Patient denies any history of childhood neck radiation. Denies having ever used lithium, amiodarone or biotin supplements. Drinks collagen. Not for the last 2-3 months. She denies diplopia, eye pain, + eye dryness. She goes to [facility] ophthalmology at [address] [place] [address] drive has upcoming appoimtment in Oct 05. Family History: 2 sisters, niece and daughter all have eye disease Interval history Labs 06/04/24 shows she is euthyroid US thyroid 06/09/24 showed atrophic gland no nodules Continues on levoxyl 75 mcg daily Has eye appointment Sep 2024 Physical exam General: sitting comfortably in no acute distress HEENT: Mild exophthalmos, EOM intact, moist oral mucosa Neck: supple, symmetrical, no thyromegaly , no dorsocervical or supraclavicular fat pads Cardiac: normal heart sounds Pulm: normal breath sounds B/L, no added breath sounds Abd: not distended, no tenderness Laboratory Tests 06/04/24 11:39 TSH 1.72 Free T4 1.01 US THYROID 06/09/24 CLINICAL INFORMATION: Postprocedural hypothyroidism. History of thyroid ablation for Graves' disease. COMPARISON: None available. TECHNIQUE: Linear transducer grayscale and color Doppler examination with attention to the region of the thyroid. FINDINGS: SIZE: Measurements of the thyroid lobes and nodules are given in sagittal, anteroposterior and transverse dimensions respectively. Right Thyroid Lobe: 1.8 x 1.0 x 0.7 cm, volume 0.7 mL. Parenchyma: The gland echotexture is heterogeneous. Thyroid vascularity is normal. Left Thyroid Lobe: 1.7 x 0.8 x 0.7 cm, volume 0.5 mL. Parenchyma: The gland echotexture is heterogeneous. Thyroid vascularity is normal. Isthmus: 0.2 cm in maximum AP dimension. No focal thyroid nodule is seen. NODES: No lymphadenopathy is seen in the tissue surrounding the thyroid gland. US/US thyroid IMPRESSION: 1. Atrophic appearing thyroid gland consistent with history of thyroid ablation. No nodules. [facility] Medical History (Updated 06/14/24 @ 10:17 by Faraz Sandoval MD) AIN grade I HIV (human immunodeficiency virus infection) PAD (peripheral artery disease) Dyslipidemia Hypertension Diabetes type 2, controlled Glaucoma Graves' orbitopathy Postablative hypothyroidism Hypothyroidism Surgical History Hx of myomectomy Hx of tubal ligation Family History Father No problems noted. Mother No problems noted. Social History Household Members: Significant Other Alcohol intake: never Patient Tobacco Use Status: Never used Tobacco Physical Exam Vital Signs: Last Vital Signs Pulse 92 07/16/24 10:43 BP 160/70 H 07/16/24 10:43 BMI result Body Mass Index 24.7 Assessment & Plan Assessment & Plan (1) Postablative hypothyroidism: Code(s): E89.0 - Postprocedural hypothyroidism Category: Medical Plan: Patient with a history of Graves disease status post ablation in 2009 who is following for postablative hypothyroidism. . Patient has good administration of levothyroxine. Discussed with patient appropriate administration of levothyroxine, taking it in the morning on an empty stomach 1 hour prior to food or other medications and by 4 hours from any minerals or antacids. Labs 06/04/24 shows she is euthyroid US thyroid 06/09/24 showed atrophic gland no nodules Plan: -continue Levoxyl 75 mcg daily -follow up in 1 year with repeat labs (2) Graves' orbitopathy: Code(s): E05.00 - Thyrotoxicosis with diffuse goiter without thyrotoxic crisis or storm Category: Medical Plan: Patient has Graves orbitopathy with no evidence of activity.? She has mild exophthalmos.? Extraocular movement is intact.? She denies diplopia, eye pain.? She has some dryness . Previously she used to see Dr. Vora who had treated her dry eye and orbitopathy in the past. She now sees [facility] ophthalmology at [address] [place] [address] Dr Glass's office . Has upcoming appointment in September 2024. Plan: -follow up with [facility] ophthalmology . Plan see above Orders: Orders Thyroid Stimulating Hormone 1 Year E89.0 - Postprocedural hypothyroidism Free T4 (Free Thyroxine) 1 Year E89.0 - Postprocedural hypothyroidism Patient Instructions: Continue Levoxyl 75 mcg daily See eye doctor Do blood work a week before your next appointment with me Follow up in 1 year Continuar con Levoxyl 75 mcg al d?a Corine oculista Hazte un an?lisis de cheryl kadie semana antes de tu pr?xima holden conmigo. Seguimiento en 1 a?o Coding Level of Care Code Est Pt Level 3 (47488) Diagnoses Postablative hypothyroidism E89.0 Graves' orbitopathy E05.00
== END 2024-07-16 11:02 | disposition home or self-care (01) ==
PROVIDERS: PCP Internal Medicine; Visit Provider Student in an Organized Health Care Education/Training Program
DX: E89.0 Postprocedural hypothyroidism (principal); E05.00 Thyrotoxicosis with diffuse goiter without thyrotoxic crisis or storm
CPT/HCPCS: 99213

== ENCOUNTER → 2024-07-16 10:38 | Outpatient (BNVA) | payer OTHER, SELFPAY | PROVIDERS: PCP Internal Medicine; Visit Provider Student in an Organized Health Care Education/Training Program | DX: E89.0 Postprocedural hypothyroidism (principal); E05.00 Thyrotoxicosis with diffuse goiter without thyrotoxic crisis or storm | CPT/HCPCS: 99212 ==

== ENCOUNTER 2024-11-04 11:07 | Outpatient (REF) | payer OTHER, SELFPAY ==
[2024-11-04 13:10] LABS: MANUAL DIFF FLAG NO
[2024-11-04 13:19] LABS: Basophils Absolute Auto 0.1 X10*3/uL (0.0-0.2); Basophils Percent Auto 0.9 % (0-2); Eosinophils Absolute Auto 0.3 X10*3/uL (0.0-0.4); Eosinophils Percent Auto 4.8 % (0-4); Hemoglobin 13.6 g/dl (12.0-16.0); Imm Gran Abs Auto 0.04 X10*3/uL (0.00-0.03); Imm Gran Pct Auto 0.6 % (0.0-0.4); Lymphocytes Absolute Auto 2.2 X10*3/uL (1.2-4.9); Lymphocytes Percent Auto 33.3 % (20-40); Mean Corpuscular HGB Conc 33.2 g/dl (31.0-35.0); Mean Corpuscular Hemoglobin 31.6 pg (27.0-33.0); Mean Corpuscular Volume 95.1 fL (80.0-98.0); Mean Platelet Volume 11.8 fL (9.4-12.3); Monocytes Absolute Auto 0.6 X10*3/uL (0.1-1.2); Monocytes Percent Auto 8.2 % (2-11); Neutrophils Absolute Auto 3.5 x10*3/uL (2.0-8.3); Neutrophils Percent Auto 52.2 % (45-73); Platelet Count 282 X10*3/uL (160-400); Red Blood Count 4.31 X10*6/uL (4.20-5.50); Red Cell Distribution Width 13.1 % (11.0-16.0); White Blood Count 6.7 X10*3/uL (4.8-10.8)
[2024-11-04 14:32] LABS: Alanine Aminotransferase 119 U/L (0-31); Albumin Level 4.4 g/dL (3.5-5.0); Alkaline Phosphatase 84 U/L (39-117); Anion Gap 13 (12-20); Aspartate Amino Transferase 81 U/L (5-31); Bilirubin Total 0.5 mg/dL (0.0-1.0); Blood Urea Nitrogen 10 mg/dL (9-16); Carbon Dioxide 28 mmol/L (22-29); Chloride 106 mmol/L (96-108); Estimated Glomerular Filt Rate > 60; Glucose Random 122 mg/dL (60-115); Potassium 3.9 mmol/L (3.3-5.1); Sodium 143 mmol/L (135-145)
[2024-11-05 08:27] LABS: HBS Num1 74.96 mIU/mL (0-7.99); HBsAGNum1 0.25 S/CO (0.00-0.99); Hepatitis B Core Antibody Nonreactive (Nonreactive); Hepatitis B Surface Antigen Negative (Negative); ~Hepatitis B Surface Antibody REACTIVE (Nonreactive)
[2024-11-06 19:19] LABS: HIV RNA PCR Qn Copies 160 copies/mL (NOT DETECTED)
[2024-11-10 18:24] LABS: Absolute CD3 Count 1056 cells/uL (840-3060); Absolute CD4 Count 504 cells/uL (490-1740); Absolute CD8 Count 564 cells/uL (180-1170); Absolute Lymphocytes 1943 cells/uL (850-3900); CD4 CD8 Ratio 0.89 (0.86-5.00); Percent CD3 Cells 54 % (57-85); Percent CD4 Cells 26 % (30-61); Percent CD8 Cells 29 % (12-42)
== END 2024-11-04 11:08 | disposition home or self-care (01) ==
LOC: HO.HHCL 11:07
PROVIDERS: Visit Provider Internal Medicine
DX: Z21 Asymptomatic human immunodeficiency virus [HIV] infection status (principal)
CPT/HCPCS: 36415; 80053; 85025; 86359; 86360; 86704; 86706; 87340; 87536

== ENCOUNTER 2024-11-17 09:26 | Outpatient (REF) | payer OTHER, SELFPAY ==
[2024-11-17 12:15] LABS: Alanine Aminotransferase 123 U/L (0-31); Albumin Level 4.4 g/dL (3.5-5.0); Bilirubin Direct 0.2 mg/dL (0.0-0.5); Bilirubin Total 0.6 mg/dL (0.0-1.0); Gamma Glutamyl Transpeptidase 123 U/L (7-33); Total Protein 8.1 g/dL (6.5-8.0)
[2024-11-17 12:29] LABS: Alkaline Phosphatase 86 U/L (39-117)
[2024-11-17 12:55] LABS: Aspartate Amino Transferase 113 U/L (5-31)
== END 2024-11-17 09:27 | disposition home or self-care (01) ==
LOC: HO.HHCL 09:26
PROVIDERS: Visit Provider Internal Medicine
DX: R74.01 Elevation of levels of liver transaminase levels (principal)
CPT/HCPCS: 36415; 80076; 82977

== ENCOUNTER 2024-12-10 11:26 | Outpatient (REF) | payer OTHER, SELFPAY ==
[2024-12-11 15:49] LABS: HIV RNA PCR Qn Copies 154 copies/mL (NOT DETECTED); HIV RNA PCR Qn Log Copies 2.19 (NOT DETECTED)
== END 2024-12-10 11:27 | disposition home or self-care (01) ==
LOC: HO.HHCL 11:26
PROVIDERS: Visit Provider Student in an Organized Health Care Education/Training Program
DX: Z21 Asymptomatic human immunodeficiency virus [HIV] infection status (principal)
CPT/HCPCS: 36415; 87536

== ENCOUNTER 2024-12-15 11:24 | Outpatient (REF) | payer OTHER, SELFPAY | END 2024-12-15 11:25 | disposition home or self-care (01) | LOC: HO.MAMMO 11:24 | PROVIDERS: PCP Internal Medicine; Visit Provider Internal Medicine | DX: Z12.31 Encounter for screening mammogram for malignant neoplasm of breast (principal) | CPT/HCPCS: 77063; 77067 ==

== ENCOUNTER → 2024-12-15 12:00 | Outpatient (BNV) | payer OTHER, SELFPAY | PROVIDERS: PCP Internal Medicine; Visit Provider Internal Medicine | DX: Z12.31 Encounter for screening mammogram for malignant neoplasm of breast (principal) | CPT/HCPCS: 77063; 77067 ==

== ENCOUNTER 2025-01-13 13:30 | Outpatient (AMB) | payer OTHER, SELFPAY ==
--- NOTE | 2025-01-13 13:35 | A.OFFVIS_ITS ---
Vital Signs 01/13/25 13:40 Height 5 ft 1 in Weight 30 lb BMI 5.7 BP 173/74 H Blood Pressure Location Rt brachial Position Sitting Pulse 92 Intake Visit Reasons: 6 month follow-up, hemorrhoids, anoscopy Intake Note: Patient here today for 6m follow up hemorrhoids/ anascopy. Patient c/o: no concerns. Denies hemorrhoids, diarrhea, constipation. Cloth Printer Helper Required: Yes Cloth Printer Helper Language: Disability Hearing Officer Name: Mary LEZAMA Accompanied by: Self / Same As Patient Allergies No Known Allergies Allergy (Verified 01/13/25 13:40) Medication List - Last Reconciled 01/13/25 by Faraz Sandoval MD aspirin (Adult Aspirin Regimen) 81 mg PO DAILY atorvastatin 40 mg PO DAILY dnclhnojq-zfraqdez-gddromn ala 50-200-25 mg (Biktarvy) 1 tab PO DAILY blood sugar diagnostic (FreeStyle Lite Strips) As directed enalapril maleate 20 mg PO DAILY lancets (TRUEplus Lancets) As directed Levoxyl (levothyroxine) 75 mcg PO DAILY NS metformin 850 mg PO BID metoprolol succinate ER 50 mg PO DAILY multivitamin 1 tab PO DAILY HPI HPI 6 month follow-up, hemorrhoids, anoscopy: Details: 68-year-old female referred for AIN I. She has known HIV so she therefore underwent an anal Pap last January, with her primary care physician. This had shown AIN 1 She denies any complaints with regards to her anus. She denies bleeding or pain. I had done her anoscopy in June, and this was unremarkable. [facility]LY [facility] Medical History AIN grade I HIV (human immunodeficiency virus infection) PAD (peripheral artery disease) Dyslipidemia Hypertension Diabetes type 2, controlled Glaucoma Graves' orbitopathy Postablative hypothyroidism Hypothyroidism Surgical History Hx of myomectomy Hx of tubal ligation Family History Father No problems noted. Mother No problems noted. Social History Household Members: Significant Other Alcohol intake: never Patient Tobacco Use Status: Never used Tobacco Review of Systems Const Denies chills and Denies fever(s) Card Denies chest pain, Denies dyspnea and Denies dyspnea on exertion Resp Denies cough, Denies dyspnea and Denies dyspnea on exertion GI Denies hematochezia and Denies change in bowel habits Denies hematuria Musc Denies back pain and Denies limited range of motion Neuro Denies focal weakness and Denies convulsions Psych Denies depression and Denies mood swings Physical Exam Const General: comfortable and no acute distress Orientation/consciousness: patient oriented x3 Neck Neck: Yes no lymphadenopathy Resp Auscultation: clear to auscultation bilaterally Cardio Rhythm: regular rhythm GI Palpation (GI): Soft to palpation, nontender and no guarding Neuro General: patient oriented x3 Assessment & Plan Assessment & Plan (1) AIN grade I: Code(s): 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 Anoscopy does not reveal any new lesions any abnormality or concerning findings. I would recommend repeating the anoscopy in about 6 months. She says she is going to [place] this July and we will see me when she gets back. She did have a low-grade lesion last year. Coding Level of Care Code Est Pt Level 3 (31409) Diagnoses AIN grade I K62.82
[2025-01-13 13:40] VITALS: BP 173/74; PULSE 92
== END 2025-01-13 13:49 | disposition home or self-care (01) ==
LOC: HO.HGS 13:30
PROVIDERS: PCP Internal Medicine; Visit Provider Surgery
DX: K62.82 Dysplasia of anus (principal)
CPT/HCPCS: 46600; 99213

== ENCOUNTER → 2025-01-13 13:30 | Outpatient (BNVA) | payer OTHER, SELFPAY | PROVIDERS: PCP Internal Medicine; Visit Provider Surgery | DX: K62.82 Dysplasia of anus (principal) | CPT/HCPCS: 46600; 99212 ==

== ENCOUNTER 2025-02-10 11:15 | Outpatient (REF) | payer OTHER, SELFPAY ==
[2025-02-10 13:14] LABS: MANUAL DIFF FLAG NO
[2025-02-10 13:28] LABS: Hematocrit 38.9 % (37.0-47.0); Hemoglobin 12.9 g/dl (12.0-16.0); Imm Gran Abs Auto 0.03 X10*3/uL (0.00-0.03); Imm Gran Pct Auto 0.5 % (0.0-0.4); Lymphocytes Absolute Auto 1.8 X10*3/uL (1.2-4.9); Mean Corpuscular HGB Conc 33.2 g/dl (31.0-35.0); Mean Corpuscular Hemoglobin 31.5 pg (27.0-33.0); Mean Corpuscular Volume 95.1 fL (80.0-98.0); NRBC Abs Auto 0.000 X10*3/uL (0.0-0.012); NRBC Pct Auto 0.0 /100WBC (0.0-0.2); Platelet Count 231 X10*3/uL (160-400); Red Blood Count 4.09 X10*6/uL (4.20-5.50); White Blood Count 6.3 X10*3/uL (4.8-10.8)
[2025-02-10 13:46] LABS: Alanine Aminotransferase 95 U/L (0-31); Albumin Level 4.5 g/dL (3.5-5.0); Alkaline Phosphatase 87 U/L (39-117); Anion Gap 14 (12-20); Aspartate Amino Transferase 74 U/L (5-31); Blood Urea Nitrogen 8 mg/dL (9-16); Calcium 10.1 mg/dL (8.4-10.2); Carbon Dioxide 26 mmol/L (22-29); Chloride 105 mmol/L (96-108); Cholesterol 182 mg/dL (<200); Estimated Glomerular Filt Rate > 60; HDL Cholesterol 46 mg/dL (>40); Potassium 3.6 mmol/L (3.3-5.1); Sodium 141 mmol/L (135-145); Total Protein 7.7 g/dL (6.5-8.0); Triglycerides 154 mg/dL (<150)
[2025-02-10 17:23] LABS: Reflex LDLD? No
[2025-02-11 04:00] LABS: HBsAGNum1 0.35 S/CO (0.00-0.99); Hepatitis B Surface Antigen Negative (Negative); ~HepC Num1 0.18 S/CO (0.00-0.79); ~Hepatitis C Antibody Nonreactive (Nonreactive)
[2025-02-11 06:18] LABS: Rubeola IgG (Measles) <13.50 AU/mL
[2025-02-11 15:49] LABS: HIV RNA PCR Qn Copies 158 copies/mL (NOT DETECTED); HIV RNA PCR Qn Log Copies 2.20 (NOT DETECTED)
[2025-02-14 01:28] LABS: TS Negative Control Passed; TS Panel A 0; TS Panel B 0; TS Positive Control Passed; TSpotTB Negative (Negative)
== END 2025-02-10 11:16 | disposition home or self-care (01) ==
LOC: HO.HHCL 11:15
PROVIDERS: PCP Internal Medicine; Visit Provider Student in an Organized Health Care Education/Training Program
DX: Z01.84 Encounter for antibody response examination (principal); Z21 Asymptomatic human immunodeficiency virus [HIV] infection status; Z11.59 Encounter for screening for other viral diseases; Z11.3 Encounter for screening for infections with a predominantly sexual mode of transmission; Z11.1 Encounter for screening for respiratory tuberculosis; Z13.220 Encounter for screening for lipoid disorders; Z11.4 Encounter for screening for human immunodeficiency virus [HIV]
CPT/HCPCS: 36415; 80053; 80061; 85025; 86481; 86592; 86735; 86762; 86765; 86803; 87340; 87536

== ENCOUNTER 2025-02-24 11:01 | Outpatient (REF) | payer OTHER, SELFPAY ==
[2025-03-07 00:54] LABS: HIV 1 Integrase Proviral DNA DETECTED; HIV 1 PR RT Proviral DNA DETECTED
== END 2025-02-24 11:02 | disposition home or self-care (01) ==
LOC: HO.HHCL 11:01
PROVIDERS: PCP Internal Medicine; Visit Provider Student in an Organized Health Care Education/Training Program
DX: Z21 Asymptomatic human immunodeficiency virus [HIV] infection status (principal)
CPT/HCPCS: 36415; 87900; 87901; 87906

== ENCOUNTER 2025-05-11 11:45 | Outpatient (REF) | payer OTHER, SELFPAY ==
[2025-05-11 13:17] LABS: MANUAL DIFF FLAG NO
[2025-05-11 13:31] LABS: Hematocrit 40.9 % (37.0-47.0); Hemoglobin 13.5 g/dl (12.0-16.0); Imm Gran Abs Auto 0.03 X10*3/uL (0.00-0.03); Imm Gran Pct Auto 0.4 % (0.0-0.4); Lymphocytes Absolute Auto 2.4 X10*3/uL (1.2-4.9); Mean Corpuscular HGB Conc 33.0 g/dl (31.0-35.0); Mean Corpuscular Hemoglobin 31.8 pg (27.0-33.0); Mean Corpuscular Volume 96.2 fL (80.0-98.0); NRBC Abs Auto 0.000 X10*3/uL (0.0-0.012); NRBC Pct Auto 0.0 /100WBC (0.0-0.2); Platelet Count 283 X10*3/uL (160-400); Red Blood Count 4.25 X10*6/uL (4.20-5.50); White Blood Count 7.5 X10*3/uL (4.8-10.8)
[2025-05-11 13:47] LABS: Alanine Aminotransferase 123 U/L (0-31); Albumin Level 4.5 g/dL (3.5-5.0); Alkaline Phosphatase 95 U/L (39-117); Anion Gap 15 (12-20); Aspartate Amino Transferase 127 U/L (5-31); Blood Urea Nitrogen 10 mg/dL (9-16); Calcium 9.7 mg/dL (8.4-10.2); Carbon Dioxide 26 mmol/L (22-29); Chloride 107 mmol/L (96-108); Estimated Glomerular Filt Rate > 60; Potassium 4.6 mmol/L (3.3-5.1); Sodium 143 mmol/L (135-145); Total Protein 8.1 g/dL (6.5-8.0)
[2025-05-12 15:29] LABS: HIV RNA PCR Qn Copies 63 copies/mL (NOT DETECTED); HIV RNA PCR Qn Log Copies 1.80 (NOT DETECTED)
[2025-05-14 16:23] LABS: Absolute CD3 Count 1422 cells/uL (840-3060); Absolute CD8 Count 718 cells/uL (180-1170); Percent CD3 Cells 49 % (57-85); Percent CD8 Cells 25 % (12-42)
== END 2025-05-11 11:46 | disposition home or self-care (01) ==
LOC: HO.HHCL 11:45
PROVIDERS: PCP Student in an Organized Health Care Education/Training Program; Visit Provider Student in an Organized Health Care Education/Training Program
DX: Z21 Asymptomatic human immunodeficiency virus [HIV] infection status (principal)
CPT/HCPCS: 36415; 80053; 85025; 86359; 86360; 87536